=== PATIENT | female | born 1970 | race African-American/Black ===

== ENCOUNTER 2022-08-06 14:35 | Emergency (ER) | payer SELFPAY ==
[~2022-08-06] VITALS: Ht 162.6 cm; Wt 103.4 kg
--- NOTE | 2022-08-06 14:45 | NUR ---
PT TAKEN TO CT
--- NOTE | 2022-08-06 14:45 | NUR ---
PT TO CT VIA [employer].
--- NOTE | 2022-08-06 14:46 | NUR ---
NURSING [employer] AT BEDSIDE
--- NOTE | 2022-08-06 14:49 | NUR ---
CALLED [facility] [phone] MELANIE NIÑO.
--- NOTE | 2022-08-06 14:50 | NUR ---
patient at ct this time
[2022-08-06 14:54] LABS: BASOPHILS # (AUTO) 0.1 K/uL (0.0-0.2); BASOPHILS % (AUTO) 1.3 % (0.0-2.0); EOSINOPHILS % (AUTO) 1.8 % (0.0-6.0); HEMATOCRIT 27 % (33-45); HEMOGLOBIN 7.4 g/dL (11.5-14.8); LYMPHOCYTES # (AUTO) 1.9 K/uL (0.8-4.8); LYMPHOCYTES % (AUTO) 17.7 % (20.0-44.0); MEAN CORPUSCULAR HGB CONC 28 g/dl (31.0-36.0); MEAN CORPUSCULAR VOLUME 59 fL (82-100); MONOCYTES # (AUTO) 1.2 K/uL (0.1-1.30); MONOCYTES % (AUTO) 10.9 % (2.0-12.0); NEUTROPHILS # (AUTO) 7.4 K/uL (1.8-8.9); NEUTROPHILS % (AUTO) 68.3 % (43.0-81.0); PLATELET COUNT (AUTO) 691 K/uL (150-450); RED BLOOD CELL COUNT(AUTO) 4.54 MIL/uL (4.0-5.2); WHITE BLOOD COUNT (AUTO) 10.9 K/uL (4.3-11.0)
[2022-08-06] MEDS ORDERED: IV NS 0.9% 250 ML IV ONE (14:57)
[2022-08-06] MEDS ORDERED: IOHEXOL-350 100 ML VIAL IV ONE (14:57)
[2022-08-06 15:09] LABS: CHOLESTEROL 156 mg/dL (<200); HDL CHOLESTEROL 43 mg/dL (40-60); LDL 103 mg/dL (0-99); TRIGLYCERIDES 111 mg/dL (30-150)
[2022-08-06 15:12] LABS: CARBON DIOXIDE 25 mmol/L (21-32); CHLORIDE 103 mmol/L (98-107); GLUCOSE 98 mg/dL (74-106); POTASSIUM 3.6 mmol/L (3.5-5.1); SODIUM SERUM 139 mmol/L (136-145)
[2022-08-06 15:13] LABS: ALANINE AMINOTRANSFERASE 17 U/L (12-78); ALBUMIN 3.9 g/dL (3.4-5.0); ALKALINE PHOSPHATASE 104 U/L (46-116); ASPARTATE AMINOTRANSFERASE 16 U/L (15-37); CALCIUM, SERUM 8.8 mg/dL (8.5-10.1); CREATININE 0.9 mg/dL (0.6-1.3); UREA NITROGEN, BLOOD 11 mg/dL (7-18)
[2022-08-06 15:15] LABS: BILIRUBIN,DIRECT 0.1 mg/dL (0.0-0.2); BILIRUBIN,TOTAL 0.3 mg/dL (0.2-1.0); TOTAL PROTEIN, SERUM 8.4 g/dL (6.4-8.2)
--- NOTE | 2022-08-06 15:30 | NUR ---
covid swab taken
[2022-08-06] MEDS ORDERED: PROCHLORPERAZINE EDISYLATE 10 MG/2 ML VIAL IVP ONE (16:00)
[2022-08-06] MEDS ORDERED: ACETAMINOPHEN ES 500 MG TABLET PO ONE (16:00)
[2022-08-06] MEDS ORDERED: diphenhydrAMINE HCL 25 MG CAPSULE PO ONE (16:00)
[2022-08-06] MEDS ORDERED: PROCHLORPERAZINE EDISYLATE 10 MG/2 ML VIAL ONE (16:07)
[2022-08-06] MEDS ORDERED: ACETAMINOPHEN ES 500 MG TABLET ONE (16:14)
[2022-08-06] MEDS ORDERED: diphenhydrAMINE HCL 25 MG CAPSULE ONE (16:15)
[2022-08-06] MEDS ORDERED: ATOR20TA PO (17:25)
[2022-08-06] MEDS ORDERED: ASPIRIN 325 MG TABLET PO ONE (17:30)
[2022-08-06] MEDS ORDERED: ASPIRIN 325 MG TABLET ONE (17:30)
[2022-08-06 17:53] VITALS: BP 156/72
--- NOTE | 2022-08-06 17:59 | NUR ---
Patient discharged to home in stable condition. Written and verbal after care instructions given. Patient verbalizes understanding of instruction.IV removed. Catheter intact and site benign. Pressure and 4x4 applied to site. No bleeding noted. Ambulatory with steady gait.
== END 2022-08-06 17:54 | disposition home or self-care (01) ==
LOC: ER 15:06
DX: R29.810 Facial weakness (principal); R47.81 Slurred speech; Z20.822 Contact with and (suspected) exposure to COVID-19; I10 Essential (primary) hypertension
CPT/HCPCS: 99285; 70498; 96374; 71045; 87426; 80061; 93005; 70496; 85025; 80048; 80076; 36415; 84484; 85730; 82962; 70450; J0780; Q0163; J7050; Q9967; C9803